=== PATIENT | female | born 1965 | race Caucasian/White ===

== ENCOUNTER 2017-03-31 10:05 | Emergency (ER) | payer OTHER ==
[~2017-03-31] VITALS: Ht 165.1 cm; Wt 103.9 kg
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
[2017-03-31 11:28] LABS: ABSOLUTE BASOPHIL COUNT 0 /CUMM (0.0-0.2); ABSOLUTE EOSINOPHIL COUNT 0.1 /CUMM (0.0-0.7); ABSOLUTE GRANULOCYTE CT 3.5 /CUMM (1.4-6.5); ABSOLUTE LYMPH COUNT 2.7 /CUMM (1.2-3.4); ABSOLUTE MONOCYTE COUNT 0.4 /CUMM (0.10-0.60); BASOPHIL % 0.5 % (0.0-2.0); GRANULOCYTE % 51.2 % (42.2-75.2); HEMATOCRIT 38.6 % (37-47); MEAN CORPUSCULAR HGB 31.9 PG (27.0-31.0); MEAN CORPUSCULAR HGB CONC 33.4 G/DL (33.0-37.0); MEAN CORPUSCULAR VOLUME 95.5 FL (81.0-99.0); MEAN PLATELET VOLUME 7.5 FL (7.4-10.4); PLATELET COUNT 272 /CUMM (130-400); RBC DISTRIBUTION WIDTH 14.5 % (11.5-14.5); RED BLOOD CELL CT 4.04 /CUMM (4.20-5.40); WHITE BLOOD CELL COUNT 6.8 /CUMM (4.8-10.8)
[2017-03-31 12:00] VITALS: BP 148/82
--- NOTE | 2017-03-31 12:03 | RADIOLOGY REPORT ---
EXAMINATION: XR LUMBOSACRAL SPINE CLINICAL INFORMATION: Chronic lumbar pain. COMPARISON: None TECHNIQUE: 3 views of the lumbosacral spine were obtained including a coned lateral view, all with weightbearing. FINDINGS: The bones are normal in mineralization and architecture. There is a mild levoscoliosis centered at the L3 level. The lumbar lordosis is somewhat exaggerated. There is no evidence of a fracture. There is moderate narrowing of the L4-L5 disc interspace with approximately 5 mm of anterior spondylolisthesis of L4 respect L5. The other disc spaces are normal in width with appropriate alignment. There does appear to be significant degenerative facet joint arthropathy at the L4-L5 level, right more advanced than left. The posterior elements appear to be intact. The sacroiliac joints are unremarkable.. IMPRESSION: 1. Degenerative changes at the L4-S1 level with disc space narrowing and facet joint arthropathy resulting in mild instability as evidenced by grade 1 spondylolisthesis. 2. Mild levoscoliosis.
--- NOTE | 2017-03-31 12:21 | ULTRASOUND REPORT ---
EXAMINATION: US TRIPLEX OF LOWER EXTREMITIES, BILATERAL CLINICAL INFORMATION: Bilateral lower extremity pain and swelling. COMPARISON: None TECHNIQUE: Color-flow triplex imaging with spectral analysis and compression Doppler were performed on the lower extremities. FINDINGS: Respiratory variation, normal compression and augmented flow are noted throughout the lower extremities. The visualized common femoral vein, superficial femoral vein, profunda femoral vein and popliteal vein show no evidence of deep venous thrombosis. The left midcalf peroneal and posterior tibial venous segments are patent by color Doppler. The right calf veins were not visualized on the submitted images; however, appropriate augmentation to flow is seen within the popliteal vein suggesting that they are patent. There is no Campbell's cyst. IMPRESSION: Normal triplex scan without evidence of deep venous thrombosis involving the lower extremities.
[2017-03-31] MEDS ORDERED: PERCOCET 5-3251 EACH PO (12:44)
[2017-03-31] MEDS ORDERED: MEDROL4 M2 PO (12:44)
== END 2017-03-31 12:57 ==
LOC: ERH 10:05
PROVIDERS: Physician Assistant Medical
DX: M51.17 Intervertebral disc disorders with radiculopathy, lumbosacral region (principal); M43.17 Spondylolisthesis, lumbosacral region
CPT/HCPCS: 72100; 93970